=== PATIENT | male | born 1975 | race Caucasian/White ===

== ENCOUNTER 2024-08-05 07:35 | Outpatient (CLI) | payer OTHER, SELFPAY ==
[2024-08-05 08:16] LABS: Basophils Absolute Auto 0.1 K/mm3 (0.0-0.1); Basophils Percent Auto 0.8 % (0.2-1.2); Eosinophils Absolute Auto 0.3 K/mm3 (0-0.3); Eosinophils Percent Auto 4.1 % (0-4.4); Hemoglobin 13.4 g/dL (14.0-18.0); Immature Granulocyte Absolute 0.01 K/mm3 (0.00-0.031); Immature Granulocyte Percent A 0.1 % (0-0.5); Lymphocytes Absolute Auto 2.61 K/mm3 (0.9-3.2); Lymphocytes Percent Auto 33.5 % (18.3-44.2); Mean Corpuscular HGB Conc 31.9 g/dl (32-36); Mean Corpuscular Hemoglobin 27.2 pg (26-34); Mean Corpuscular Volume 85.2 fl (80-100); Mean Platelet Volume 10.3 fl (7.4-10.4); Monocytes Absolute Auto 0.5 K/mm3 (0.1-0.6); Monocytes Percent Auto 6.7 % (2.6-8.5); Neutrophils Absolute Auto 4.3 K/mm3 (1.3-6.7); Neutrophils Percent Auto 54.8 % (45.5-73.1); Platelet Count Result 247 k/mm3 (150-375); Red Blood Count 4.93 M/mm3 (4.6-6.20); Red Cell Distribution Width 13.5 % (11.5-14.5); White Blood Count 7.8 K/mm3 (4.5-10.0)
[2024-08-05 08:39] LABS: Alanine Aminotransferase 39 U/L (6-50); Albumin Level 4.4 g/dL (3.5-5.1); Alkaline Phosphatase 101 U/L (38-126); Anion Gap 7 mmol/L (4-12); Aspartate Amino Transferase 48 U/L (17-59); Bilirubin,Total 0.4 mg/dL (0.2-1.3); Blood Urea Nitrogen 13 mg/dL (9-20); Carbon Dioxide 28 mmol/L (22-30); Chloride 98 mmol/L (98-107); Cholesterol 204 mg/dL (0-200); Estimated Glomerular Filt Rate > 60; Glucose 191 mg/dL (65-110); HDL Direct 44 mg/dL; Potassium 4.4 mmol/L (3.4-5.0); Sodium 133 mmol/L (137-145); Triglycerides 133 mg/dL (<150)
[2024-08-05 08:50] LABS: LDL Cholesterol Direct 130 mg/dL
[2024-08-05 09:03] LABS: Prostate Specific Antigen 1.3 ng/mL (< OR = 4.0)
[2024-08-05 09:06] LABS: Hemoglobin A1C 8.7 % (<5.7)
== END 2024-08-05 07:36 | disposition home or self-care (01) ==
LOC: ANHLAB 07:46
PROVIDERS: PCP Nurse Practitioner; Visit Provider Nurse Practitioner
DX: E78.2 Mixed hyperlipidemia (principal); I10 Essential (primary) hypertension; Z12.5 Encounter for screening for malignant neoplasm of prostate
CPT/HCPCS: 36415; 80053; 80061; 83036; 84153; 84443; 85025; G0103

== ENCOUNTER 2025-01-03 09:14 | Outpatient (CLI) | payer OTHER, SELFPAY ==
--- OUTSIDE RECORDS SUMMARY | 2025-01-03 09:36 | XMS_ITS | Encounter Summary ---
Author Organization [facility] Address [address] [place] [id number] Care Team Providers Care Commercial Subcontractor Name Role Phone None, Provider Primary Care Provider Ольга Kaminski Primary Care Provider [phone] Encounter Details Date Type Department Care Team (Late st Contact Info) Description 03/26/2003 Abstract [facility] Conversion Md, Generic Conversion, Social History Tobacco Use Types Packs/Day Years Used Date Smoking Tobacco: Never Assessed Sex and Gender Information Value Date Recorded Sex Assigned at Not on file Legal Sex Male 7:27 PM CDT Gender Identity Not on file Sexual Orientation Not on file documented as of this encounter Plan of Treatment Not on file documented as of this encounter Visit Diagnoses Not on filedocumented in this encounter Care Teams Commercial Subcontractor Relationship Specialty Start Date End Date None, Provider, PCP - General 10/20/21 11/09/21 Ольга Niec FNP [address] [place] [address] [place] [address] PCP - General Nurse Practitioner Family 11/10/21 documented as of this encounter
--- OUTSIDE RECORDS SUMMARY | 2025-01-03 09:36 | XMS_ITS | Clinical Summary ---
Author Organization [facility] Address Formerly [facility] [place] [address] Care Team Providers Care Crushing Foreman Name Role Phone Ольга Nice [facility] Primary Care Provider [phone] Allergies Active Allergy Reactions Criticality Noted Date Comments Lisinopril Cough 07/07/2022 Penicillins Hives 10/20/2021 Medications atorvastatin (LIPITOR) 20 MG tabletIndications:M ixed hyperlipidemia Take 1 tablet (20 mg total) by mouth nightly at bedtime. 90 tablet 4 Active losartan (COZAAR) 25 MG tabletIndications:P rimary hypertension Take 1 tablet (25 mg total) by mouth daily. 90 tablet 4 Active metFORMIN ER (GLUCOPHAGE-XR) 500 MG 24 hr tabletIndications:T ype 2 diabetes mellitus with hyperglycemia, without long-term current use of insulin ([facility]) Take 1 tablet (500 mg total) by mouth daily with breakfast. 90 tablet 4 Active Active Problems Problem Noted Date Diagnosed Date Type 2 diabetes mellitus wit hout complication, without long-term current use of insulin ([facility]/HCC) 11/01/2022 Motion sickness, subsequent encounter 11/01/2022 Cough due to VAN inhibitor 07/07/2022 Screen for colon cancer 12/03/2021 Overview (12/03/2021): Added automatically from request for surgery [id number] Mixed hyperlipidemia 11/04/2021 Family history of colon cancer in father 022 Hyperglycemia 11/04/2021 Obesity 03/25/2014 Overview (11/04/2021): exercising Hypertension Encounters Date Type Department Care Team Description 12/04/2024 Scan [facility] Scanned, [facility] from Last 3 Months Family History Medical History Relation Comments Cancer Father Colon Cancer Father No Known Problems Maternal Grandfather Diabetes Maternal Grandmother Hypertension Maternal Grandmother Hypertension Mother No Known Problems Paternal Grandfather No Known Problems Paternal Grandmother Relation Status Comments Father Alive Maternal Grandfather Maternal Grandmother Mother Alive Paternal Grandfather Paternal Grandmother Social History Tobacco Use Types Packs/Day Years Used Date Smoking Tobacco: Never Smokeless Tobacco: Never Alcohol Use Standard Drinks/Week Comments Yes 0 (1 standard drink = 0.6 oz pur e alcohol) socially PHQ-2 Answer Date Recorded Patient Health Questionnaire-2 Score 0 11/01/2022 Sex and Gender Information Value Date Recorded Sex Assigned at Not on file Legal Sex Male 7:27 PM CDT Gender Identity Not on file Sexual Orientation Not on file Last Filed Vital Signs Vital Sign Reading Time Taken Comments Blood Pressure 130/72 08/29/2024 2:52 PM MEASURER MACHINE Pulse 69 08/29/2024 2:52 PM MEASURER MACHINE Temperature 36.5 C (97.7 F) 08/29/2024 2:52 PM MEASURER MACHINE Respiratory Rate 16 08/29/2024 2:52 PM MEASURER MACHINE Oxygen Saturation 99% 08/29/2024 2:52 PM MEASURER MACHINE Inhaled Oxygen Concentration - - Weight 119.5 kg (263 lb 6.4 oz) 08/29/2024 2:52 PM MEASURER MACHINE Height 177.8 cm (5' 10 ) 08/29/2024 2:52 PM MEASURER MACHINE Body Mass Index 37.79 08/29/2024 2:52 PM MEASURER MACHINE Plan of Treatment Health Maintenance Due Date Last Done Comments Kidney Health Evaluation 1974 Annual Physical 1977 Diabetes: Retinopathy Eye Exam 1992 Hepatitis C 1992 DTaP, Tdap and Td Vaccines ( 1 - Tdap) 1993 Hepatitis B Vaccines (1 of 3 - 19+ 3-dose series) 1993 Lipid Panel 09/09/2021 09/09/2020, 07/13/2018, 09/19/2013 Zoster Vaccines (1 of 2) 2024 PHQ-2 (Physician [place]) 09/25/2024 Hemoglobin A1C 02/02/2025 08/05/2024, 11/10/2021, 09/09/2020 COVID-19 Vaccine (2 - 2023-2 5 season) 2025 05/20/2021 Postponed from 05/26 (Patient Refused) Pneumococcal Vaccine: Pediatrics (0 to 5 Years) and At-Risk Patients (6 to 64 Years) (1 of 2 - PCV) 07/07/2026 Postponed from (Per Provider Recommendation) Colorectal Cancer Screening Colonoscopy (10 Years) 12/15/2031 12/14/2021 Meningococcal B Vaccine Aged Out No l onger eligible based on patient's age to complete this topic Meningococcal Vaccine Aged Out No kacy vero eligible based on patient's age to complete this topic RSV Immunizations Under 20 Months Aged Out No longer eligible b ased on patient's age to complete this topic Procedures Procedure Name Priority Date/Time Associated Diagnosis Comments OUTSIDE LAB (SCAN ORDER) Routine 08/05/2024 LIPID PANEL Routine 09/09/2020 10:34 AM MEASURER MACHINE from Last 3 Months or Most Recently Relevant to Health Maintenance Results * OUTSIDE LAB (08/05/2024) Pathologist [facility] HGB A1C 8.7 % [facility] ONBASE 08/05/2024 us [facility] Scanned SCANNING Final Resu lt [facility] ON[facility] * (ABNORMAL) LIPID PANEL (09/09/2020 10:34 AM MEASURER MACHINE) CHOLESTEROL 176 0 - 200 mg/dL [facility] TRIGLYCERIDES 101 0 - 150 mg/dL [facility] HDL 34(L) 40 - 60 mg/dL [facility] LDL (CALCULATED) 122 10 - 130 mg/dL [facility] CARDIO RISK 5 [facility] Comment: CHOLESTEROL LEVELS AND CHD RISK INTERPRETATIONS CHOLESTEROL LDL DESIRABLE < 200 mg/dL < 130 mg/dL BORDERLINE 200-239 mg/dL 130-159 mg/dL HIGH > 240 mg/dL > 160 mg/dL CHD RISK FACTORS CHOL/HDL RATIO MALE FEMALE BELOW AVG. < 4.2 < 3.9 AVERAGE 4.2-7.3 3.9-5.7 ABOVE AVG.(MODERATE) 7.4-11.5 5.8-9.0 ABOVE AVG.(HIGH) > 11.5 > 9.0 LDL AND CHD RATIO ARE INVALID IF TRIGLYCERIDES >450 09/09/2020 10:3 4 AM MEASURER MACHINE 09/09/2020 10:34 AM MEASURER MACHINE Gary Walker MD LABORATORY Final Result [facility] [id number] from Last 3 Months or Most Recently Relevant to Health Maintenance Insurance [employer] Care Teams Crushing Foreman Relationship Specialty Start Date End Date Ольга Nice FNP [address] [place] [id number] PCP - General Nurse Practitioner Family 2/16/22
[2025-01-03 09:48] LABS: Basophils Absolute Auto 0.1 K/mm3 (0.0-0.1); Basophils Percent Auto 0.9 % (0.2-1.2); Eosinophils Absolute Auto 0.2 K/mm3 (0-0.3); Eosinophils Percent Auto 2.4 % (0-4.4); Hematocrit 41.8 % (42.0-52.0); Hemoglobin 13.7 g/dL (14.0-18.0); Immature Granulocyte Absolute 0.02 K/mm3 (0.00-0.031); Immature Granulocyte Percent A 0.3 % (0-0.5); Lymphocytes Absolute Auto 2.49 K/mm3 (0.9-3.2); Mean Corpuscular HGB Conc 32.8 g/dl (32-36); Mean Corpuscular Hemoglobin 27.3 pg (26-34); Mean Corpuscular Volume 83.3 fl (80-100); Mean Platelet Volume 10.2 fl (7.4-10.4); Monocytes Absolute Auto 0.4 K/mm3 (0.1-0.6); Monocytes Percent Auto 5.3 % (2.6-8.5); Neutrophils Absolute Auto 4.6 K/mm3 (1.3-6.7); Neutrophils Percent Auto 59.1 % (45.5-73.1); Platelet Count Result 257 k/mm3 (150-375); Red Blood Count 5.02 M/mm3 (4.6-6.20); Red Cell Distribution Width 13.4 % (11.5-14.5); White Blood Count 7.8 K/mm3 (4.5-10.0)
[2025-01-03 10:04] LABS: Alanine Aminotransferase 33 U/L (6-50); Albumin Level 4.7 g/dL (3.5-5.1); Alkaline Phosphatase 116 U/L (38-126); Anion Gap 8 mmol/L (4-12); Aspartate Amino Transferase 25 U/L (17-59); Bilirubin,Total 0.4 mg/dL (0.2-1.3); Blood Urea Nitrogen 13 mg/dL (9-20); Calcium 9.2 mg/dL (8.4-10.2); Carbon Dioxide 29 mmol/L (22-30); Chloride 102 mmol/L (98-107); Cholesterol 169 mg/dL (0-200); Estimated Glomerular Filt Rate > 60; Glucose 228 mg/dL (65-110); HDL Direct 36 mg/dL; Potassium 4.7 mmol/L (3.4-5.0); Sodium 139 mmol/L (137-145); Triglycerides 111 mg/dL (<150)
[2025-01-03 10:07] LABS: Hemoglobin A1C 8.6 % (<5.7)
[2025-01-03 10:17] LABS: LDL Cholesterol Direct 106 mg/dL
[2025-01-03 10:35] LABS: Prostate Specific Antigen 1.3 ng/mL (< OR = 4.0)
== END 2025-01-03 09:15 | disposition home or self-care (01) ==
PROVIDERS: PCP Nurse Practitioner; Visit Provider Nurse Practitioner
DX: Z12.5 Encounter for screening for malignant neoplasm of prostate (principal); R79.89 Other specified abnormal findings of blood chemistry; E11.65 Type 2 diabetes mellitus with hyperglycemia; E78.2 Mixed hyperlipidemia; I10 Essential (primary) hypertension
CPT/HCPCS: 36415; 80053; 80061; 83036; 84153; 84443; 85025